=== PATIENT | male | born 1985 | race Caucasian/White ===

== ENCOUNTER 2022-02-09 11:27 | Emergency (ER) | payer OTHER ==
[2022-02-09] MEDS ORDERED: Lidocaine 1% 5 ML VIAL INJECT ONE (11:54)
[2022-02-09] MEDS ORDERED: Diphtheria,Pertussis(Acell),Tetanus Vaccine 0.5 ML Syringe IM ONE (11:55)
== END 2022-02-09 12:35 | disposition home or self-care (01) ==
LOC: VM.ED 11:27
DX: S61.217A Laceration without foreign body of left little finger without damage to nail, initial encounter (principal); Z79.899 Other long term (current) drug therapy; Z23 Encounter for immunization; W26.8XXA Contact with other sharp object(s), not elsewhere classified, initial encounter
CPT/HCPCS: 12001; 90471; 90715; 99282-25; 99283

== ENCOUNTER 2022-03-17 15:52 | Emergency (ER) | payer SELFPAY ==
[2022-03-17] MEDS ORDERED: Ketorolac 30 MG/ML SDV IM ONE (16:26)
== END 2022-03-17 17:20 | disposition home or self-care (01) ==
LOC: VM.ED 15:52
DX: S46.911A Strain of unspecified muscle, fascia and tendon at shoulder and upper arm level, right arm, initial encounter (principal); W19.XXXA Unspecified fall, initial encounter; Y99.0 Civilian activity done for income or pay
CPT/HCPCS: 73030; 96372; 99283; J1885

== ENCOUNTER 2023-12-25 09:01 | Emergency (ER) | payer SELFPAY ==
[2023-12-25] MEDS: Take Home: Sulfamethoxazole/Trimethoprim 800-160 MG Tab, 6 Tab Pack PO ONE (09:22)
== END 2023-12-25 09:27 | disposition home or self-care (01) ==
LOC: VM.ED 09:01
DX: L73.9 Follicular disorder, unspecified (principal)
CPT/HCPCS: 99282; 99283; A9270-GY